=== PATIENT | female | born 1975 | race Caucasian/White ===

== ENCOUNTER 2022-03-20 01:19 | Emergency (ER) | payer OTHER, SELFPAY ==
[2022-03-20] MEDS ORDERED: Ondansetron PF 4 MG/2 ML Vial ONE (01:37)
[2022-03-20] MEDS ORDERED: Lorazepam 2 MG/ML VIAL ONE (01:37)
[2022-03-20] MEDS ORDERED: Sodium Chloride 0.9% 1,000 ML ONE (01:37)
[2022-03-20 01:44] LABS: #Basophils 0.2 thou/uL (0.0-0.2); #Eosinphils 0.4 thou/uL (0.0-0.7); #Lymphocytes 2.8 thou/uL (1.20-3.40); #Monocytes 0.7 thou/uL (0.11-0.59); %Basophils 2.1 % (0.0-1.0); %Eosinophils 5.9 % (0.0-10.0); %Lymphocytes 39.2 % (21.0-51.0); %Monocytes 10.2 % (0.0-10.0); %Neutrophils 42.6 % (42.0-75.0); Hemoglobin 12.7 g/dL (12.0-16.0); Mean Corpuscular HGB CONC 33.7 g/dL (32.0-36.0); Mean Corpuscular Hemoglobin 33.7 pg (27.0-31.0); Mean Corpuscular Volume 100.2 fL (78.0-98.0); Mean Platelet Volume 7.9 fL (7.4-10.4); Platelet Count 272 thou/uL (130-400); Red Blood Cell (RBC) Count 3.76 mill/uL (4.20-5.40); White Blood Cell (WBC) Count 7.1 thou/uL (4.8-10.8)
[2022-03-20 02:04] LABS: ALT (SGPT) 51 U/L (8-55); AST (SGOT) 40 U/L (5-34); Albumin 4.5 g/dL (3.5-5.0); Alkaline Phosphatase 60 U/L (40-110); Anion Gap 17 mmol/L (10-20); BUN (Urea Nitrogen) 11 mg/dL (7.0-18.7); Bilirubin, Total 0.4 mg/dL (0.2-1.2); Calc. Creatinine Clearance 0 mL/min (70-130); Calcium 9.1 mg/dL (7.8-10.44); Carbon Dioxide 22 mmol/L (22-29); Chloride 102 mmol/L (98-107); Estimated GFR 99; Globulin 2.3 g/dL (2.4-3.5); Glucose 82 mg/dL (70-105); Potassium 3.5 mmol/L (3.5-5.1); Protein, Total 6.8 g/dL (6.0-8.3); Sodium 137 mmol/L (136-145)
[2022-03-20] MEDS ORDERED: Lidocaine 1% PF 5 ML VIAL ONE (02:16)
[2022-03-20] MEDS ORDERED: Ketorolac Tromethamine 30 MG/ML VIAL ONE (02:44)
== END 2022-03-20 03:03 | disposition home or self-care (01) ==
LOC: MADERS 01:19
DX: S01.112A Laceration without foreign body of left eyelid and periocular area, initial encounter (principal); F17.290 Nicotine dependence, other tobacco product, uncomplicated; X58.XXXA Exposure to other specified factors, initial encounter
CPT/HCPCS: 12011; 70450; 70486; 72125; 80053; 85025; 96374; 96375; J1885; J2060; J2405; J7050

== ENCOUNTER 2025-04-11 19:53 | Emergency (ER) | payer OTHER ==
[2025-04-11] MEDS ORDERED: Ondansetron PF 4 MG/2 ML Vial ONE (20:10)
[2025-04-11 20:15] LABS: #Basophils 0.2 thou/uL (0.0-0.2); #Eosinophils 0.2 thou/uL (0.0-0.7); #Lymphocytes 2.5 thou/uL (1.20-3.40); #Monocytes 0.7 thou/uL (0.11-0.59); #Neutrophils 4.2 thou/uL (1.40-6.50); %Basophils 2.1 % (0.0-1.0); %Eosinophils 2.7 % (0.0-10.0); %Lymphocytes 32.5 % (21.0-51.0); %Monocytes 9.2 % (0.0-10.0); %Neutrophils 53.6 % (42.0-75.0); Hematocrit 40.1 % (36.0-47.0); Hemoglobin 13.3 g/dL (12.0-16.0); Mean Corpuscular Hemoglobin 32.2 pg (27.0-31.0); Mean Corpuscular Volume 97.4 fl (78.0-98.0); Platelet Count 328 10x3/uL (130-400); Red Blood Cell (RBC) Count 4.12 mill/uL (4.20-5.40); White Blood Cell (WBC) Count 7.8 10x3/uL (4.8-10.8)
[2025-04-11 20:21] LABS: INR-International Normal Ratio 0.9; Prothrombin Time 11.7 sec (12.0-14.7)
[2025-04-11 20:22] LABS: PTT 28.5 sec (22.9-36.1)
[2025-04-11 20:24] LABS: D-Dimer Test 0.27 mcg/mL (0.27-0.43)
[2025-04-11 20:31] LABS: Acetaminophen Less than 10 mcg/mL (Less than 10); Lipase 27 U/L (8-78); Magnesium 1.6 mg/dL (1.6-2.6); Salicylate Less than 8.0 mg/dL (Less than 8.0)
[2025-04-11 20:33] LABS: Troponin I 0.023 ng/mL (< 0.028)
[2025-04-11 20:34] LABS: ALT (SGPT) 73 U/L (Less than 34); AST (SGOT) 57 U/L (11-34); Albumin 5.0 g/dL (3.1-4.5); Alkaline Phosphatase 98 U/L (40-110); Anion Gap 20 mmol/L (10-20); BUN (Urea Nitrogen) 4 mg/dL (7.0-18.7); Bilirubin, Total 0.6 mg/dL (0.3-1.2); Calc. Creatinine Clearance 0 mL/min (70-130); Calcium 9.9 mg/dL (7.8-10.44); Carbon Dioxide 22 mmol/L (22-29); Chloride 92 mmol/L (98-107); Globulin 2.7 g/dL (2.4-3.5); Glucose 84 mg/dL (70-105); Potassium 3.3 mmol/L (3.5-5.1); Sodium 131 mmol/L (136-145)
[2025-04-11 21:00] LABS: Cocaine Metabolite Screen Negative (Negative); THC/Cannabinoid Screen Negative (Negative); Tricyclic Screen Negative (Negative)
[2025-04-11] MEDS ORDERED: diphenhydrAMINE 50 MG/ML VIAL ONE (22:18)
[2025-04-11] MEDS ORDERED: Metoclopramide HCl 10 MG (2 mL) VIAL ONE (22:18)
[2025-04-11] MEDS ORDERED: Ketorolac Tromethamine 30 MG (1 mL) VIAL ONE (22:18)
[2025-04-11 22:51] LABS: Troponin I Less than 0.010 ng/mL (< 0.028)
== END 2025-04-11 23:20 | disposition home or self-care (01) ==
LOC: MADERS 19:53
DX: R51.9 Headache, unspecified (principal); R07.89 Other chest pain; I16.0 Hypertensive urgency; F10.129 Alcohol abuse with intoxication, unspecified; F17.290 Nicotine dependence, other tobacco product, uncomplicated
CPT/HCPCS: 70450; 71045; 80053; 80306; 80307; 83605; 83690; 83735; 83880; 84484; 85025; 85379; 85610; 85730; 93005; 94760; 96365; 96375; J1200; J1885; J2405; J2765; J3010; J7030